=== PATIENT | female | born 1970 | race Caucasian/White ===

== ENCOUNTER 2024-11-11 11:09 | Emergency (ER) | payer OTHER ==
[2024-11-11] VITALS (8 sets, daily range): BP systolic 135–153; BP diastolic 84–103
[~2024-11-11] VITALS: Ht 162.6 cm; Wt 66.0 kg
[2024-11-11] MEDS ORDERED: SILVER SULFADIAZINE 50 GM/TUBE EA TOP ONE (12:55)
[2024-11-11] MEDS ORDERED: Diph, Acellular Pertussis, Tet 0.5 ML/VIAL (Tdap) SDV IM ONE (12:55)
[2024-11-11] MEDS ORDERED: SILVADENE1 % EX (13:14)
== END 2024-11-11 13:51 | disposition home or self-care (01) | DRG 935 ==
LOC: ED 11:09
PROC: 2W2RX4Z Dressing of Left Lower Leg using Bandage (ICD-10-PCS; principal; 2024-11-11)
DX: T24.202A Burn of second degree of unspecified site of left lower limb, except ankle and foot, initial encounter (principal); T23.122A Burn of first degree of single left finger (nail) except thumb, initial encounter; T31.0 Burns involving less than 10% of body surface; E03.9 Hypothyroidism, unspecified; X04.XXXA Exposure to ignition of highly flammable material, initial encounter; Y92.009 Unspecified place in unspecified non-institutional (private) residence as the place of occurrence of the external cause